=== PATIENT | female | born 1995 | race Caucasian/White ===

== ENCOUNTER 2017-08-29 00:11 | Emergency (ER) | payer BC ==
[~2017-08-29] VITALS: Ht 175.3 cm; Wt 83.9 kg
[2017-08-29 01:41] LABS: INFLUENZA B ANTIGEN None Detected (None Detect)
[2017-08-29] MEDS ORDERED: OSELB75 PO (01:49)
[2017-08-29] MEDS ORDERED: ZOFRAN ODT4 MG PO (01:49)
[2017-08-29 02:15] VITALS: BP 103/61
== END 2017-08-29 02:18 | disposition home or self-care (01) ==
LOC: M.ERS 00:11
PROVIDERS: Emergency Medicine Emergency Medical Services
DX: J09.X2 Influenza due to identified novel influenza A virus with other respiratory manifestations (principal); F17.210 Nicotine dependence, cigarettes, uncomplicated

== ENCOUNTER 2018-06-05 14:33 | Emergency (ER) | payer BC ==
[~2018-06-05] VITALS: Ht 175.3 cm; Wt 88.5 kg
[~2018-06-05 14:33] MED LIST: OSELB75 PO; ZOFRAN ODT4 MG PO
[2018-06-05] MEDS ORDERED: TAYTULLA 1 MG-1 EACH PO (14:44)
[2018-06-05 15:10] LABS: ABSOLUTE LYMPHOCYTES 2.9 thou/uL (0.8-5.3); ABSOLUTE MONOCYTES 0.5 thou/uL (0.0-1.2); ABSOLUTE NEUTROPHILS 4.5 thou/uL (1.6-8.1); BASOPHILS 0.5 %; EOSINOPHILS 0.4 %; HEMATOCRIT 39.3 % (37.0-47.0); HEMOGLOBIN 13.1 gm/dL (12.0-15.0); LYMPHOCYTES 36.1 %; MCHC 33.4 g/dL (28.0-37.0); MCV 86.8 fL (80.0-100.0); MONOCYTES 6.6 %; NUCLEATED RBCS 0 /100WBC; PLATELET COUNT* 206 thou/uL (150-400); POLYS 56.4 %; RBC 4.53 mil/uL (4.20-5.00); RDW-CV 12.2 % (10.5-14.5)
[2018-06-05 15:22] LABS: CALCIUM 8.2 mg/dL (8.5-10.1); CREATININE 0.8 mg/dL (0.6-1.3); POTASSIUM 3.2 mmol/L (3.5-5.1)
[2018-06-05 15:27] LABS: ALBUMIN 3.1 g/dL (3.4-5.0); TOTAL BILIRUBIN 0.2 mg/dL (<0.1-1.0); TOTAL PROTEIN 6.5 g/dL (6.4-8.2)
[2018-06-05] MEDS ORDERED: NORCO 5-325 TA1 EACH PO (17:21)
[2018-06-05] MEDS ORDERED: IBUPROFEN 800800 M1 PO (17:21)
[2018-06-05 19:58] VITALS: BP 92/57
== END 2018-06-05 20:00 | disposition home or self-care (01) ==
LOC: M.ERS 14:33
PROVIDERS: Physician Assistant
DX: S83.014A Lateral dislocation of right patella, initial encounter (principal); F41.9 Anxiety disorder, unspecified; F17.210 Nicotine dependence, cigarettes, uncomplicated; W19.XXXA Unspecified fall, initial encounter; Y93.89 Activity, other specified; Y92.89 Other specified places as the place of occurrence of the external cause; Y99.8 Other external cause status